=== PATIENT | female | born 2005 | race Caucasian/White ===

== ENCOUNTER 2024-06-26 23:35 | Emergency (ER) | payer BC, SELFPAY ==
[2024-06-26 23:39] VITALS: BP 132/75; PULSE 78; RESP 16; TEMP 36.5; O2SAT 100
[2024-06-26 23:42] VITALS: BP 132/75; PULSE 72; O2SAT 100
[2024-06-26 23:43] VITALS: PULSE 81; O2SAT 100
[2024-06-26 23:44] VITALS: BP 132/75; PULSE 78; RESP 16; TEMP 36.5; O2SAT 100
[2024-06-26 23:46] VITALS: BP 126/70; PULSE 75; O2SAT 100
[2024-06-26 23:50] VITALS: PULSE 96; O2SAT 100
[2024-06-27] VITALS (11 sets, daily range): BP systolic 117; BP diastolic 71; PULSE 72–95; RESP 16; O2SAT 97–100
[2024-06-27 00:08] LABS: Lactate 0.6 mmol/L (<or=2.0)
[2024-06-27 00:09] LABS: Abs Immature Grans 0.03 10^3/uL (0.0-0.06); Absolute Basophil Count 0.07 10^3/uL (0.0-0.2); Absolute Eosinophil Count 0.04 10^3/uL (0.0-0.7); Absolute Lymphocyte Count 3.26 10^3/uL (1.2-3.4); Absolute Monocyte Count 0.72 10^3/uL (0.1-0.8); Absolute Neutrophil Count 6.85 10^3/uL (1.2-6.7); Basophils % 0.6 %; Eosinophils % 0.4 %; HCT 39.8 % (36.0-46.0); HGB 13.4 g/dL (11.2-15.7); Immature Grans % 0.3 %; Lymphocytes % 29.7 %; MCH 30.7 pg (27.0-33.0); MCHC 33.7 % (32.0-36.0); MCV 91 fL (80-95); Monocytes % 6.6 %; Neutrophils % 62.4 %; RBC 4.37 10^6/uL (3.93-5.22); RDW 11.8 % (11.7-14.6); RDW-SD 39.7 fL; WBC 10.97 10^3/uL (4.4-10.8)
[2024-06-27] MEDS: Lactated Ringers 1,000 ML 1000 ML IV (00:14)
[2024-06-27] MEDS: ACETAMINOPHEN 1,000 MG/100 ML BAG 400 MG IVPB (00:14)
[2024-06-27 00:25] LABS: ALT 14 U/L (14-59); AST 14 U/L (15-37); Albumin 4.6 g/dL (3.4-5.0); Alkaline Phosphatase 91 U/L (46-116); Anion Gap 9.9 mmol/L (3-11); BUN 12 mg/dL (7-18); Bilirubin, Total 1.9 mg/dL (0.2-1.0); CO2 27.1 mmol/L (21.0-32.0); CREATININE 0.9 mg/dL (0.55-1.02); Calcium 9.5 mg/dL (8.5-10.1); Chloride 105 mmol/L (98-107); Estimated GFR 93.28 (mL/min/1.73m2); Glucose 88 mg/dL (74-106); Potassium 3.8 mmol/L (3.5-5.1); Sodium 142 mmol/L (136-145); Total Protein 7.8 g/dL (6.4-8.2)
--- NOTE | 2024-06-27 01:13 | ED.GENADUL_ITS ---
Discharge Plan Disposition Patient Disposition: Home Condition: Good Discharge Details Clinical Impression: Kidney stone on right side Primary Care Provider: Unknown,Unknown ED Provider: Dipak Mane Home Meds and New Rx's Prescriptions: New ketorolac 10 mg tablet 10 mg PO TID 5 Days Qty: 15 0RF tamsulosin [Flomax] 0.4 mg capsule 0.4 mg PO DAILY Qty: 10 0RF Discharge Instructions Instructions: Kidney stones in adults, Kidney Stone Diet Additional Instructions: At this time you have evidence of a small kidney stone. This is likely the cause of your symptoms. This should pass within the next 12 to 48 hours, if not earlier. Please drink plenty of fluids, 10 to 12 cups/day at least. Please take 10mg of Ketorolac every 8 hours and 1000 mg of Tylenol every 6 hours as needed for pain. These are the maximum doses of these medicines. Please take the Flomax as directed. This will help in expediting the passage of your kidney stone. If your pain stops, you can stop taking the Flomax. Please strain your urine to collect the stone. This can then be analyzed by your family doctor. If you do not have resolution of your symptoms after 48 to 72 hours please follow-up closely with your family doctor or return here for reassessment. If you notice any worsening of your symptoms, or any new symptoms such as inability to urinate, vomiting, diarrhea, fever, chills, shortness of breath, chest pain, numbness, weakness, or fainting , please return immediately to the emergency department for reevaluation. Please follow up with your primary care provider as soon as possible for reassessment and reevaluation. As always, it was a pleasure participating in your medical care today. Referrals: Rodger Valladares MD [ [facility] STAFF PHYSICIAN] - HPI General Date/Time Provider Initiated Documentation: 06/26/24 23:51 . HPI Narrative: 19-year-old female with no significant past medical history who presents today for evaluation of right-sided flank and abdominal pain. Patient states that around 6:30 PM she developed achy dull throbbing pain in the right flank, which radiates somewhat anteriorly every now and then. She takes ibuprofen without any improvement. Pain comes and goes in severity but is always present. She denies vomiting or diarrhea. She is not currently on her period. She denies symptoms like this in the past. No prior abdominal surgeries. No other complaints. Related Data Home Medications ?Medication ?Instructions ?Recorded ?Confirmed ketorolac 10 mg tablet 10 mg PO TID 5 days #15 tabs 06/27/24 tamsulosin 0.4 mg capsule (Flomax) 0.4 mg PO DAILY #10 caps 06/27/24 Previous Rx's ?Medication ?Instructions ?Recorded ketorolac 10 mg tablet 10 mg PO TID 5 days #15 tabs 06/27/24 tamsulosin 0.4 mg capsule (Flomax) 0.4 mg PO DAILY #10 caps 06/27/24 Allergies Allergy/AdvReac Type Severity Reaction Status Date / Time No Known Drug Allergies Allergy NONE Verified 06/26/24 23:47 General Stated Complaint: Abd Prob CARI: 3 Exam Narrative Exam Narrative: 1.Const: Well-nourished, Well-developed, appearing stated age 2.Eyes: PERRL, no conjunctival injection, and symmetrical lids. 3.ENT: Atraumatic external nose and ears. Moist MM. Neck: Symmetric, trachea midline, No thyromegaly. 4.CVS: +S1/S2, Peripheral pulses 2+ and equal in all extremities. Brisk capillary refill in all extremities. 5.RESP: Unlabored respiratory effort. Clear to auscultation bilaterally. No wheezes rales or rhonchi 6.GI: Soft, nondistended. No guarding or rebound. Mild right-sided CVA tenderness. No pain at McBurney's point, no pelvic pain. Negative Cardenas sign. Negative heel strike test. Negative obturator and psoas sign. 7.MSK: Normocephalic/Atraumatic, Extremities w/o deformity or ttp No cyanosis or clubbing, Normal movement of all extremities 8.Skin: Warm, Dry. No rashes or lesions. 9.Neuro: geotechnical intern II-XII grossly intact. Sensation grossly intact, no focal neurologic deficits. 10.Psych: (AAO) x3. Appropriate mood and affect Course Vital Signs Vital signs: Vital Signs Temperature 36.5 C 06/26/24 23:39 Pulse 78 06/26/24 23:39 Respiratory Rate 16 06/26/24 23:39 Blood Pressure 132/75 06/26/24 23:39 Pulse Oximetry 100 06/26/24 23:39 Temperature 36.5 C 06/26/24 23:44 Pulse 78 06/26/24 23:44 Respiratory Rate 16 06/26/24 23:44 Blood Pressure 132/75 06/26/24 23:44 Blood Pressure Position Sitting 06/26/24 23:44 Pulse Oximetry 100 06/26/24 23:44 Oxygen Delivery Method Room Air 06/26/24 23:44 Oxygen Flow Rate 0 06/26/24 23:44 Pain Level 5 06/26/24 23:44 Lab/Test Results Lab/Test Results: Laboratory Tests Range/Units 06/27/24 00:02 WBC (4.4-10.8) 10^3/uL 10.97 H RBC (3.93-5.22) 10^6/uL 4.37 Hgb (11.2-15.7) g/dL 13.4 Hct (36.0-46.0) % 39.8 MCV (80-95) fL 91 MCH (27.0-33.0) pg 30.7 MCHC (32.0-36.0) % 33.7 RDW (11.7-14.6) % 11.8 Plt Count (130-400) 10^3/uL MPV (8.0-11.0) fL Immature Gran % % 0.3 Neutrophils % % 62.4 Lymphocytes % % 29.7 Monocytes % % 6.6 Eosinophils % % 0.4 Basophils % % 0.6 Nucleated RBC % (0.0-0.3) % 0.0 Absolute Neutrophils (1.2-6.7) 10^3/uL 6.85 H Absolute Lymphocytes (1.2-3.4) 10^3/uL 3.26 Absolute Monocytes (0.1-0.8) 10^3/uL 0.72 Absolute Eosinophils (0.0-0.7) 10^3/uL 0.04 Absolute Basophils (0.0-0.2) 10^3/uL 0.07 VBG Lactate (<or=2.0) mmol/L 0.6 Sodium (136-145) mmol/L 142 Potassium (3.5-5.1) mmol/L 3.8 Chloride (98-107) mmol/L 105 Carbon Dioxide (21.0-32.0) mmol/L 27.1 Anion Gap (3-11) mmol/L 9.9 BUN (7-18) mg/dL 12 Creatinine (0.55-1.02) mg/dL 0.9 Est GFR (CKD-EPI 2020) (mL/min/1.73m2) 93.28 Glucose (74-106) mg/dL 88 Calcium (8.5-10.1) mg/dL 9.5 Total Bilirubin (0.2-1.0) mg/dL 1.9 H AST (15-37) U/L 14 L ALT (14-59) U/L 14 Alkaline Phosphatase (46-116) U/L 91 Total Protein (6.4-8.2) g/dL 7.8 Albumin (3.4-5.0) g/dL 4.6 Medical Decision Making 19-year-old female with no significant past medical history who presents today for evaluation of right-sided flank and abdominal pain. Patient states that around 6:30 PM she developed achy dull throbbing pain in the right flank, which radiates somewhat anteriorly every now and then. She takes ibuprofen without any improvement. Pain comes and goes in severity but is alw ays present. She denies vomiting or diarrhea. She is not currently on her period. She denies symptoms like this in the past. No prior abdominal surgeries. No other complaints. Exam demonstrates well-appearing female, mild right CVA tenderness, no evidence of right lower quadrant pain or tenderness at McBurney's point, negative Cardenas sign. Differential includes kidney stone, less likely appendicitis with no right lower quadrant tenderness. UTI or pyelonephritis is also of concern although she has no urinary symptoms otherwise. We will get CT imaging to rule out appendectomy/kidney stone, we will get basic labs, treat with NSAIDs for pain control, monitor closely and reassess. Will gently rehydrate. 1:[address] scan on my review shows a 2 mm right-sided kidney stone at the ureter ovesicular junction. Laboratory workup has returned, no significant white count, no bandemia. No significant left shift. Lactate is normal. Electrolytes normal. Urinalysis shows no evidence of infection with negative leuk esterase, negative nitrite, greater than 50 RBCs. This correlates clinically with kidney stone. Flomax and Toradol have been given. Patient will be discharged home with follow-up with urology for stone testing. Patient's pain well-controlled. No evidence of renal dysfunction. I have extensively reviewed the treatment plan and discharge instructions with the patient. I have addressed all patient concerns at this time. The patient was made aware of what symptoms to monitor for that would warrant a return to the emergency department. Discussed the plan with the patient, they demonstrate verbal understanding and agreement with our assessment and plan at this time. The documentation in this chart was dictated using [employer] dictation software. Please excuse any dictation errors. FINDINGS: Lungs: Lung bases clear. Liver: Normal appearing liver. Gallbladder and biliary ducts: Gallbladder moderately distended. Subtle heterogeneous density in the gallbladder lumen suspicious for noncalcified stones or sludge. Artifact not excluded. No biliary dilatation. Pancreas: Normal appearing pancreas. Spleen: Normal appearing spleen. Adrenal glands: Adrenal glands partially obscured but grossly unremarkable, as seen. Kidneys and ureters: 1 mm calcification at the right ureterovesical junction with upstream ureterectasis and mild hydronephrosis. Normal-appearing left kidney. Stomach and bowel: No oral contrast. Stomach partially decompressed. No small bowel dilatation to suggest obstruction. Normal-appearing colon. No evidence of diverticulitis or colitis. Appendix: Normal retrocecal appendi Intraperitoneal space: Small amount of ascites in the deep pelvis. No free air. Vasculature: Normal caliber abdominal aorta. Lymph nodes: No pathologically enlarged mesenteric, retroperitoneal, or pelvic sidewall lymph nodes. Urinary bladder: Normal-appearing urinary bladder, partially distended. Reproductive: Anteverted uterus, normal in size. Ovaries partially obscured but normal in size. 3.2 cm x 2.5 cm enlarged left ovarian follicle on image 67 of series 8. Bones/joints: No acute fracture seen among the bones of the abdomen or pelvis. Soft tissues: No significant ventral or inguinal hernia. IMPRESSION: 1. 1 mm obstructing distal right ureteral calculus at the ureterovesical junction. 2. 3.2 cm x 2.5 cm enlarged left ovarian follicle with a small amount of free fluid in the cul-de-sac of Edgard and left adnexal region. Thank you for allowing us to participate in the care of your patient. Dictated and Authenticated by: Yariel House MD 06/27/2024 2:26 AM Eastern Time ([place] & [place] Quality:SDOH Health Related Social Needs: No Data to Display PFSH All Active Problems (Updated 06/27/24 @ 01:45 by Dipak Mane DO) Kidney stone on right side (Acute) Social History Smoking/Tobacco Use Status: Never Smoking risk assessment performed?: Yes Alcohol Intake: never Drug use: Never Substance use type: does not use Housing: other Do you feel safe at home: Yes Do you feel safe in your relationship?: Yes
[2024-06-27 01:28] LABS: Bilirubin Negative (Negative); Blood Large (Negative); Clarity Sl Cloudy (Clear); Glucose Negative (Negative); Ketones Negative (Negative); Leukocyte Esterase Negative (Negative); Nitrite Negative (Negative); pH 6.5 (5-8)
[2024-06-27 01:38] LABS: Bacteria Few HPF (Negative); C & S Indicated? No; Casts Negative LPF (Negative); Crystals Negative HPF (Negative); Epithelial Cells Few HPF (Negative); Mucus Negative (Negative); RBC >50 HPF (0-2); WBC 0-2 HPF (0-5)
[2024-06-27] MEDS: Normal Saline - Diluent 50 ML VIAL IJ (01:42)
[2024-06-27] MEDS: Omnipaque 350 MG/ML 100 ML BTL 75 ML IJ (01:42)
--- NOTE | 2024-06-27 01:42 | DI.CT_ITS ---
Exam(s) CT ABDOMEN PELVIS W EXAM: CT ABDOMEN PELVIS W CLINICAL HISTORY: rlq and R flank pain, eval for stone/appe. TECHNIQUE: Imaging Protocol: Axial computed tomography images with coronal and sagittal reformatted images were created and reviewed CONTRAST MATERIAL: Intravenous: Omnipaque-350 75cc Oral: None COMPARISON: No exams were available for comparison FINDINGS: VISUALIZED LUNG BASES: No nodules nor pleural effusions evident. ABDOMEN: There is no ascites. LIVER: There are no focal hepatic lesions evident. No dilated intrahepatic ducts. GALLBLADDER/BILIARY: No obvious gallbladder pathology. CBD is not dilated. PANCREAS: No evidence of pancreatic mass nor dilatation of the pancreatic duct. SPLEEN: Normal size. No lesions. Splenic and portal veins are patent. ADRENALS: There are no significant adrenal masses. KIDNEYS:No cysts evident. No solid renal masses. No intrarenal calculi. However, there is very mil d dilatation of the right collecting system and there is a tiny 1-2 mm calculus in the distal right u reter at the UV junction. Urinary bladder otherwise unremarkable. No calculi seen in the opposite-l eft ureter. ABDOMINAL AORTA: Abdominal aorta is not enlarged. LYMPH NODES:There is no retroperitoneal nor paraaortic adenopathy. ABDOMINAL WALL: No evidence of significant anterior abdominal wall nor inguinal hernia. GI: There is no evidence of bowel obstruction, free air, nor abscess. PELVIS: GI: No evidence of appendicitis.No evidence of sigmoid diverticulitis. LYMPH NODES: There is no intrapelvic nor inguinal adenopathy. REPRODUCTIVE: Uterus appears age-appropriate as does the right ovary. There is a 3 x 2.5 cm cyst in left ovary and there is a small amount of free fluid in the left adnexal region and cul-de-sac. URINARY BLADDER: See above OSSEOUS: No fractures and no significant osseous lesions. IMPRESSION: 1. There is a small 1-2 mm calculus in the lower right ureter at the UV junction. There is minimal d ilatation of the right collecting system above this level. There are no radiopaque calculi seen with in the kidneys. Urinary bladder appears unremarkable. 2. There is a 3 cm enlarged left ovarian follicular cyst with adjacent fluid in the left adnexa and c ul-de-sac. 3. No evidence of acute appendicitis. RADIATION DOSE DELIVERED: 403.84mGy.cm Total DLP DATA REPOSITORY: All CT scans at this facility are submitted to the National Radiology Data Registry (NRDR) Dose Index Registry (DIR) with the [employer] ([employer]). RADIATION OPTIMIZATION: All CT scans at this facility use at least one of these dose optimization te chniques: automated exposure control; mA and/or kV adjustment per patient size (includes targeted exa ms where dose is matched to clinical indication); or iterative reconstruction.
[2024-06-27] MEDS: Ketorolac 15 MG/ML VIAL IVP (01:50)
[2024-06-27] MEDS: Tamsulosin 0.4 MG CAPCR PO (01:50)
--- NOTE | 2024-06-27 02:54 | DI.VRAD_ITS ---
PROCEDURE INFORMATION: Exam: CT Abdomen And Pelvis With Contrast Exam date and time: 06/27/2024 1:33 AM Age: 19 years old Clinical indication: Abdominal pain; Right; Rlq and R flank pain, eval for stone/appe TECHNIQUE: Imaging protocol: Computed tomography of the abdomen and pelvis with contrast. Radiation optimization: All CT scans at this facility use at least one of these dose optimization techniques: automated exposure control; mA and/or kV adjustment per patient size (includes targeted exams where dose is matched to clinical indication); or iterative reconstruction. Contrast material: [id number]; Contrast volume: 75 ml; Contrast route: INTRAVENOUS (IV); COMPARISON: No relevant prior studies available. FINDINGS: Lungs: Lung bases clear. Liver: Normal appearing liver. Gallbladder and biliary ducts: Gallbladder moderately distended. Subtle heterogeneous density in the gallbladder lumen suspicious for noncalcified stones or sludge. Artifact not excluded. No biliary dilatation. Pancreas: Normal appearing pancreas. Spleen: Normal appearing spleen. Adrenal glands: Adrenal glands partially obscured but grossly unremarkable, as seen. Kidneys and ureters: 1 mm calcification at the right ureterovesical junction with upstream ureterectasis and mild hydronephrosis. Normal-appearing left kidney. Stomach and bowel: No oral contrast. Stomach partially decompressed. No small bowel dilatation to suggest obstruction. Normal-appearing colon. No evidence of diverticulitis or colitis. Appendix: Normal retrocecal appendix. Intraperitoneal space: Small amount of ascites in the deep pelvis. No free air. Vasculature: Normal caliber abdominal aorta. Lymph nodes: No pathologically enlarged mesenteric, retroperitoneal, or pelvic sidewall lymph nodes. Urinary bladder: Normal-appearing urinary bladder, partially distended. Reproductive: Anteverted uterus, normal in size. Ovaries partially obscured but normal in size. 3.2 cm x 2.5 cm enlarged left ovarian follicle on image 67 of series 8. Bones/joints: No acute fracture seen among the bones of the abdomen or pelvis. Soft tissues: No significant ventral or inguinal hernia. IMPRESSION: 1. 1 mm obstructing distal right ureteral calculus at the ureterovesical junction. 2. 3.2 cm x 2.5 cm enlarged left ovarian follicle with a small amount of free fluid in the cul-de-sac of Edgard and left adnexal region. Dictated and Authenticated by: Yariel House MD. Orderin Antonietta Quesada MD
--- NOTE | 2024-06-27 15:11 | NUR.NOTE ---
Access chart to see if the prescriptions were sent to [facility]. They were received in the computer at that facility. Nursing Note:
--- NOTE | 2024-06-27 15:23 | NUR.NOTE ---
Nursing Note:Patient called and stated that the pharmacy told her that they did not receive any of the prescriptions sent to them yesterday. [facility] in [place] was called and they also stated that they never received anything for the patient. I spoke with the pharmacist and gave him verbal orders per the discharge instructions for both the tamsulosin and ketorolac. I also called the patient back to let her know that I gave verbal orders for both medications and that she should be all set. She was instructed to wait at least an hour before going to the pharmacy but should be good to go.
== END 2024-06-27 04:10 | disposition home or self-care (01) ==
LOC: ER 06-27 01:58
PROVIDERS: Emergency Provider Student in an Organized Health Care Education/Training Program
DX: N20.0 Calculus of kidney (principal); R10.9 Unspecified abdominal pain
CPT/HCPCS: 99284; 99285; 80053; 96365; 96375; 74177; 81003; 81015; 83605; 85025; J0131; J1885; J3490